=== PATIENT | female | born 1970 ===

== ENCOUNTER 2020-02-10 12:53 | Outpatient (REF) | payer MEDICAID, SELFPAY ==
[2020-02-13 04:07] LABS: SARS-CoV-2 RNA Undetected (Undetected); SARS-CoV-2 Specimen Source Nasal
== END 2020-02-10 13:13 ==
LOC: NCHCN 12:53
PROVIDERS: PCP Nurse Practitioner Family; Visit Provider Nurse Practitioner Family
DX: Z20.828 Contact with and (suspected) exposure to other viral communicable diseases (principal)
CPT/HCPCS: U0003

== ENCOUNTER 2020-06-12 17:25 | Outpatient (REF) | payer MEDICAID, SELFPAY | END 2020-06-12 17:26 | disposition home or self-care (01) | LOC: NCHCN 17:25 | PROVIDERS: PCP Nurse Practitioner Family; Visit Provider Nurse Practitioner Family | DX: N39.0 Urinary tract infection, site not specified (principal) | CPT/HCPCS: 87086 ==

== ENCOUNTER 2020-06-14 16:04 | Outpatient (REF) | payer MEDICAID, SELFPAY ==
[2020-06-14 20:59] LABS: Bacteria Negative HPF (Negative); C & S Indicated? No/Sq. Contamination; Casts Negative LPF (Negative); Crystals Many Amorphous HPF (Negative); Epithelial Cells Many HPF (Negative); Mucus Negative (Negative); RBC Negative HPF (0-2); WBC 0-2 HPF (0-5)
[2020-06-18 13:54] LABS: Chlamydia Result Negative (Negative); GC Result Negative (Negative)
== END 2020-06-14 16:05 | disposition home or self-care (01) ==
LOC: NCHCN 16:04
PROVIDERS: PCP Nurse Practitioner Family; Visit Provider Nurse Practitioner Family
DX: R35.0 Frequency of micturition (principal); Z11.3 Encounter for screening for infections with a predominantly sexual mode of transmission
CPT/HCPCS: 87491; 87591; 81015; 87086

== ENCOUNTER 2020-06-19 12:08 | Outpatient (REF) | payer MEDICAID, SELFPAY ==
[2020-06-19 20:25] LABS: Abs Immature Grans 0.02 10^3/uL (0.0-0.06); Absolute Basophil Count 0.05 10^3/uL (0.0-0.2); Absolute Eosinophil Count 0.03 10^3/uL (0.0-0.7); Absolute Lymphocyte Count 1.92 10^3/uL (1.2-3.4); Absolute Monocyte Count 0.72 10^3/uL (0.1-0.8); Absolute Neutrophil Count 6.72 10^3/uL (1.2-6.7); Basophils % 0.5; Eosinophils % 0.3; HCT 42.4 % (36.0-46.0); HGB 14.2 g/dL (11.2-15.7); Immature Grans % 0.2; Lymphocytes % 20.3; MCH 30.1 pg (27.0-33.0); MCHC 33.5 % (32.0-36.0); MCV 89.8 fL (80-95); Monocytes % 7.6; Neutrophils % 71.1; Nucleated RBC 0 %; Platelet Count 273 10^3/uL (130-400); RBC 4.72 10^6/uL (3.93-5.22); RDW-SD 43.1 fL; WBC 9.46 10^3/uL (4.4-10.8)
[2020-06-19 20:33] LABS: ALT 20 U/L (14-59); AST 20 U/L (15-37); Albumin 4.4 g/dL (3.4-5.0); Alkaline Phosphatase 65 U/L (46-116); Anion Gap 13.2 mmol/L (3-11); BUN 14 mg/dL (7-18); Bilirubin, Total 0.7 mg/dL (0.2-1.0); CO2 22.8 mmol/L (21.0-32.0); CREATININE 1.1 mg/dL (0.55-1.02); Calcium 9.2 mg/dL (8.5-10.1); Chloride 103 mmol/L (98-107); Estimated GFR 52.58 (mL/min/1.73m2); Glucose 94 mg/dL (74-106); Potassium 4.6 mmol/L (3.5-5.1); Sodium 139 mmol/L (136-145); Total Protein 7.4 g/dL (6.4-8.2)
== END 2020-06-19 12:09 | disposition home or self-care (01) ==
LOC: NCHCN 12:08
PROVIDERS: PCP Nurse Practitioner Family; Visit Provider Nurse Practitioner Family
DX: R10.84 Generalized abdominal pain (principal); R35.0 Frequency of micturition
CPT/HCPCS: 80053; 85025; 87086

== ENCOUNTER 2022-03-03 14:43 | Outpatient (REF) | payer MEDICAID, SELFPAY ==
[2022-03-03 15:05] LABS: HCT 44.8 % (36.0-46.0); HGB 14.7 g/dL (11.2-15.7); MCH 29.3 pg (27.0-33.0); MCHC 32.8 % (32.0-36.0); MCV 89 fL (80-95); Platelet Count 354 10^3/uL (130-400); RBC 5.01 10^6/uL (3.93-5.22); RDW-SD 42.8 fL; WBC 6.38 10^3/uL (4.4-10.8)
[2022-03-03 15:53] LABS: ALT 31 U/L (14-59); AST 24 U/L (15-37); Albumin 4.2 g/dL (3.4-5.0); Alkaline Phosphatase 104 U/L (46-116); Anion Gap 7.7 mmol/L (3-11); BUN 12 mg/dL (7-18); Bilirubin, Total 0.5 mg/dL (0.2-1.0); CO2 29.3 mmol/L (21.0-32.0); CREATININE 0.9 mg/dL (0.55-1.02); Calcium 9.1 mg/dL (8.5-10.1); Chloride 105 mmol/L (98-107); Glucose 104 mg/dL (74-106); Magnesium 2.1 mg/dL (1.8-2.4); Potassium 4.6 mmol/L (3.5-5.1); Sodium 142 mmol/L (136-145); Total Protein 7.5 g/dL (6.4-8.2); Vitamin B12 515 pg/mL (193-986)
[2022-03-03 16:06] LABS: Lipase 78 U/L (73-393)
[2022-03-04 20:01] LABS: Calculated LDL 162 mg/dL (<100); Cholesterol 243 mg/dL (<200); HDL Cholesterol 60 mg/dL (40-60); Triglyceride 106 mg/dL (<150)
== END 2022-03-03 14:44 | disposition home or self-care (01) ==
LOC: NCHCN 14:43
PROVIDERS: PCP Nurse Practitioner Family; Visit Provider Nurse Practitioner Family
DX: R19.7 Diarrhea, unspecified (principal); R10.84 Generalized abdominal pain; Z00.00 Encounter for general adult medical examination without abnormal findings
CPT/HCPCS: 80053; 80061; 83690; 85027; 82607; 83735

== ENCOUNTER 2022-03-04 17:51 | Outpatient (REF) | payer MEDICAID, SELFPAY ==
[2022-03-11 15:08] LABS: Helicobacter pylori Ag, Feces Negative (Negative)
== END 2022-03-04 17:52 | disposition home or self-care (01) ==
LOC: NCHCN 17:51
PROVIDERS: PCP Nurse Practitioner Family; Visit Provider Nurse Practitioner Family
DX: R19.7 Diarrhea, unspecified (principal)
CPT/HCPCS: 87338

== ENCOUNTER 2023-09-30 19:02 | Outpatient (REF) | payer MEDICAID, SELFPAY ==
[2023-09-30 22:39] LABS: ALT 21 U/L (14-59); AST 25 U/L (15-37); Albumin 4.2 g/dL (3.4-5.0); Alkaline Phosphatase 102 U/L (46-116); Bilirubin, Total 0.66 mg/dL (0.2-1.0)
[2023-09-30 23:23] LABS: Bilirubin, Direct 0.1 mg/dL (0.0-0.2)
== END 2023-09-30 19:03 | disposition home or self-care (01) ==
LOC: NCHCN 19:02
PROVIDERS: PCP Nurse Practitioner Family; Visit Provider Physician Assistant
DX: F41.8 Other specified anxiety disorders (principal); R79.89 Other specified abnormal findings of blood chemistry
CPT/HCPCS: 80076

== ENCOUNTER 2024-12-06 10:13 | Outpatient (REF) | payer MEDICAID, SELFPAY ==
[2024-12-06 15:02] LABS: HCT 44.3 % (36.0-46.0); HGB 14.7 g/dL (11.2-15.7); MCH 29.3 pg (27.0-33.0); MCHC 33.2 % (32.0-36.0); MCV 88 fL (80-95); MPV 9.9 fL (8.0-11.0); Platelet Count 311 10^3/uL (130-400); RBC 5.02 10^6/uL (3.93-5.22); RDW 14.2 % (11.7-14.6); RDW-SD 45.4 fL; WBC 6.30 10^3/uL (4.4-10.8)
[2024-12-06 18:08] LABS: ALT 21 U/L (14-59); AST 23 U/L (15-37); Albumin 4.1 g/dL (3.4-5.0); Alkaline Phosphatase 96 U/L (46-116); Anion Gap 12.1 mmol/L (3-11); BUN 13 mg/dL (7-18); Bilirubin, Total 0.6 mg/dL (0.2-1.0); CO2 23.9 mmol/L (21.0-32.0); Calcium 9.7 mg/dL (8.5-10.1); Calculated LDL 161 mg/dL (<100); Chloride 105 mmol/L (98-107); Cholesterol 247 mg/dL (<200); Estimated GFR 75.97 (mL/min/1.73m2); Glucose 107 mg/dL (74-106); HDL Cholesterol 65 mg/dL (>or=50); Potassium 4.2 mmol/L (3.5-5.1); Sodium 141 mmol/L (136-145); Total Protein 8.0 g/dL (6.4-8.2); Triglyceride 108 mg/dL (<150)
== END 2024-12-06 10:14 | disposition home or self-care (01) ==
LOC: NCHCN 10:13
PROVIDERS: PCP Nurse Practitioner Family; Visit Provider Nurse Practitioner Family
DX: Z00.00 Encounter for general adult medical examination without abnormal findings (principal); Z13.220 Encounter for screening for lipoid disorders
CPT/HCPCS: 80053; 80061; 85027